=== PATIENT | male | born 1975 | race Caucasian/White ===

== ENCOUNTER 2021-04-11 15:11 | Emergency (ER) | payer BC, OTHER ==
[2021-04-11] MEDS ORDERED: FLOMAX0.4 MG PO (17:58)
[2021-04-11] MEDS ORDERED: HYDROCODON-ACE1 EAC4 PO (18:22)
== END 2021-04-11 18:30 | disposition home or self-care (01) ==
LOC: ER1 15:11
DX: N13.2 Hydronephrosis with renal and ureteral calculous obstruction (principal)
CPT/HCPCS: 81001; 87086; 96374; 99284; J1885